=== PATIENT | female | born 1980 | race Caucasian/White ===

== ENCOUNTER → 2017-06-16 | Outpatient (CLI) | payer OTHER ==
[~2017-06-16] MED LIST: ADVAIR 100/501 DISK IH; ALBUTEROL17 GM IH; AMITRIPTYLINE H25 MG PO; CENTRUM COMPLE1 EACH PO; JOLESSA1 EACH PO; METFORMIN HCL500 MG PO; MOTRIN800 MG PO; NEXIUM40 MG PO; OMEPRAZOLE40 M1 PO; SENNA8.6 MG PO; SINEQUAN50 MG PO; SYMBICORT60 INHALAT IH; TAMIFLU75 MG PO; TUSSIONEX PENN473 ML PO; TYLENOL EXTRA500 MG PO; VENTOLIN HFA18 GM IH
== END | disposition home or self-care (01) ==
LOC: NUC 06:38
DX: K31.84 Gastroparesis (principal)
CPT/HCPCS: 78264; A9541